=== PATIENT | female | born 1990 | race Hispanic/Latino ===

== ENCOUNTER 2018-08-06 12:18 | Emergency (ER) | payer MEDICAID ==
[2018-08-06 20:13] VITALS: BP 82/64; PULSE 167; RESP 18; TEMP 97.7
== END 2018-08-06 14:55 | disposition home or self-care (01) ==
LOC: H.EROB2 12:18
DX: O34.63 Maternal care for abnormality of vagina, third trimester (principal); N89.8 Other specified noninflammatory disorders of vagina; Z3A.37 37 weeks gestation of pregnancy